=== PATIENT | female | born 1970 | race Caucasian/White ===

== ENCOUNTER 2020-02-01 11:55 | Outpatient (CLI) | payer BC, SELFPAY ==
--- NOTE | ~2020-02-01 | XR_ITS ---
EXAMINATION: XR ankle RT min 3V DATE: 02/01/2020 12:58 INDICATION: Right ankle pain TECHNIQUE: Anteroposterior, oblique, mortise, and lateral views of the right ankle were obtained. COMPARISON: MRI dated 01/26/2013 FINDINGS: Bone alignment is normal. No fracture. Joint spaces are normal. 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 No cortical erosions or periosteal reaction. Soft tissues are unremarkable. No right ank le joint effusion. IMPRESSION: 1. Negative right ankle radiographs. Reviewed, dictated and finalized at location A.
--- NOTE | ~2020-02-01 | XR_ITS ---
EXAMINATION: XR shoulder RT min 2V DATE: 02/01/2020 12:58 INDICATION: Unspecified right shoulder pain TECHNIQUE: AP internally and externally rotated, AP oblique externally rotated and axillary views of the right shoulder were obtained. COMPARISON: None FINDINGS: Normal alignment. No fracture. Glenohumeral joint is normal. Small subarticular cyst at the clavicul ar side of the otherwise normal right acromioclavicular joint space suggesting mild osteoarthritis. S oft tissues are unremarkable. Visualized portions of the lungs are clear. IMPRESSION: Mild acromioclavicular osteoarthritis. Reviewed, dictated and finalized at location A.
--- NOTE | ~2020-02-01 | XR_ITS ---
EXAMINATION: XR knee RT 3V DATE: 02/01/2020 12:58 INDICATION: Unspecified right knee pain TECHNIQUE: Anteroposterior, oblique and crosstable lateral views of the right knee were obtained COMPARISON: None. FINDINGS: Alignment is normal. No fracture. No joint effusion/layering lipohemarthrosis. Soft tissues are unre markable. IMPRESSION: 1. Negative right knee radiographs. Reviewed, dictated and finalized at location A.
== END 2020-02-01 11:56 | disposition home or self-care (01) ==
PROVIDERS: PCP Family Medicine; Visit Provider Family Medicine
DX: M25.579 Pain in unspecified ankle and joints of unspecified foot (principal); M25.569 Pain in unspecified knee; M19.011 Primary osteoarthritis, right shoulder
CPT/HCPCS: 73030; 73562; 73610

== ENCOUNTER 2020-04-06 14:30 | Outpatient (RCR) | payer BC, SELFPAY ==
--- NOTE | 2020-03-10 10:57 | PTOPEVAL ---
Thank you for referring Yashira Simms to [facility]. Please review, sign, date and return this plan of care OZZY. Pt referred to therapy due to right knee and impairment. She demonstrates increased pain, hip weakness, gait impairment and poor functional movement patterns that require additional skilled therapy to address. Cont PT 2x/wk x 6 wk. I agree with and certify that the following plan of care is medically necessary. Referring Physician Date Attending Provider: Jamey Lester MD *PT Outpatient Evaluation Start: 03/10/20 09:32 Freq: Status: Active Protocol: Document 03/10/20 09:32 DAMON (Rec: 03/10/20 10:08 [facility] [email or web address]) Therapy Assessment Status Assessment Status Assessment Status Evaluation Outpatient Past Medical History Cardiovascular History Hx Hypertension Yes Respiratory History Hx Asthma Yes: mild Hx Sleep Apnea Yes Musculoskeletal History Hx Other Musculoskeletal Disorders Yes: right ankle injury 2003, tendon tear Evaluation Information Problem Diagnosis right knee pain Onset 09/05 Cause fall Subjective Information Pt had a fall in August when Query Text:As Reported By Patient/ stepping down a step with a Family twisting motion landing on right side and shoulder. Reports a progression of pain and symptoms. Reports increased pain with negotiating steps, walking, and standing. She has increased pain once she sits down from prolonged standing. She has increased pain with exposure to cold. Reports significant pain with any light touch to the patella , medial/lateral knee region, gastroc region. Hypersensitivity increases with any activities. Issued meloxicam which is helping. 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 She has not had to drive the 2 hours a day, but the decreased driving has not improved her symptoms. Diagnostic Tests X-Rays For This Problem Yes Prior Level of Function Home Setting Home Type House Environmental Barriers Stairs, Greater than 4 Living Situation With Spouse Pain Assessment
--- NOTE | 2020-04-06 15:32 | PTOPEVAL ---
Thank you for referring Yashira Simms to [facility]. Please review, sign, date and return this plan of care OZZY. Pt has received 9 therapy visits to address right knee impairments. She reports improved pain and function with daily activities. She is indep with her HEP. DC skilled therapy with pt to continue with her HEP and general fitness program. I agree with and certify that the following plan of care is medically necessary. Referring Physician Date Admitting Provider: Attending Provider: Jamey Lester MD PT Discharge Note *PT Outpatient Evaluation Start: 03/10/20 09:32 Freq: Status: Active Protocol: Document 04/06/20 14:33 [facility] (Rec: 04/06/20 14:58 [facility] [email or web address]) Therapy Assessment Status Assessment Status Assessment Status Re-evaluation Evaluation Information Problem Diagnosis right knee pain Onset 09/05 Cause fall Additional Evaluation Detail Pt had a fall in August when stepping down a step with a twisting motion landing on right side and shoulder. Subjective Information She had a f/u with on Text:As Reported By Patient/ 20, who does not recommend Family surgery at this time. She is able to walk longer, but cont to pain at the end of the walk. She is going longer time period before the pain flares-up. Reports decreased intensity of pain with negotiating steps, walking, and standing. She is able to get out of bed or chair easier without increased pain. Reports the hypersensitivity of right knee has improved. Pain Assessment Timing of Pain Assessment Timing of Pain Assessment Re-assessment Pain Scale Pain Scale Used Numeric (1 - 10) Self Report Pain Assessment Right Knee(s) Reported Pain Level 2 Pain Description Aching,Burning,Dull,Shooting, Tightness,With Movement Pain Frequency Chronic,Continuous Lowest Pain Intensity 2 Greatest Pain Intensity 10 Pain Aggravating Factors Exercise/Activity,Lifting, Prolonged Position,Sitting, Stair Climbing,Walking,Weight Bearing/Standing Pain Score Pain Score 2: Self Report Lower Extremity Range of Motion Knee Range of Motion Right Knee Flexion Range of Motion - Acti
== END 2020-04-07 13:07 | disposition home or self-care (01) ==
LOC: ANHPT 14:30
PROVIDERS: PCP Family Medicine; Visit Provider Orthopaedic Surgery
DX: M25.561 Pain in right knee (principal); G89.29 Other chronic pain
CPT/HCPCS: 97110; 97112; 97140; 97162

== ENCOUNTER 2020-04-09 14:02 | Outpatient (CLI) | payer BC, SELFPAY ==
[2020-04-09 14:16] LABS: Basophils Absolute Auto 0.1 K/mm3 (0.0-0.1); Basophils Percent Auto 0.8 % (0.2-1.2); Eosinophils Absolute Auto 0.2 K/mm3 (0-0.3); Eosinophils Percent Auto 1.5 % (0-4.4); Hematocrit 38.3 % (37.0-47.0); Immature Granulocyte Absolute 0.04 K/mm3 (0.00-0.031); Immature Granulocyte Percent A 0.4 % (0-0.5); Lymphocytes Percent Auto 20.8 % (18.3-44.2); Mean Corpuscular HGB Conc 31.3 g/dl (32-36); Mean Corpuscular Hemoglobin 28.4 pg (26-34); Mean Corpuscular Volume 90.5 fl (80-100); Mean Platelet Volume 8.5 fl (7.4-10.4); Monocytes Absolute Auto 1.5 K/mm3 (0.1-0.6); Monocytes Percent Auto 14.4 % (2.6-8.5); Neutrophils Absolute Auto 6.6 K/mm3 (1.3-6.7); Neutrophils Percent Auto 62.1 % (45.5-73.1); Platelet Count Result 409 k/mm3 (150-375); Red Blood Count 4.23 M/mm3 (4.2-5.4); White Blood Count 10.6 K/mm3 (4.5-10.0)
[2020-04-09 14:20] LABS: Blood Urea Nitrogen 13 mg/dL (8-26); Carbon Dioxide 26 mmol/L (22-30); Chloride 102 mmol/L (98-109); Estimated Glomerular Filt Rate > 60; Glucose 95 mg/dL (70-105); Potassium 4.2 mmol/L (3.5-4.9); Sodium 139 mmol/L (138-146)
[2020-04-09 16:37] LABS: Alanine Aminotransferase 19 U/L (4-35); Albumin Level 4.1 g/dL (3.5-5.1); Alkaline Phosphatase 79 U/L (38-126); Anion Gap 13.5 mmol/L (7-16); Aspartate Amino Transferase 21 U/L (14-36); Bilirubin,Total 0.3 mg/dL (0.2-1.3); Blood Urea Nitrogen 14 mg/dL (7-17); Carbon Dioxide 25 mmol/L (22-30); Chloride 102 mmol/L (98-107); Estimated Glomerular Filt Rate > 60; Glucose 95 mg/dL (65-105); Potassium 4.5 mmol/L (3.4-5.0); Sodium 136 mmol/L (137-145)
== END 2020-04-09 14:03 | disposition home or self-care (01) ==
LOC: ANHLAB 14:04
PROVIDERS: PCP Family Medicine; Visit Provider Internal Medicine Hematology & Oncology
DX: D47.3 Essential (hemorrhagic) thrombocythemia (principal)
CPT/HCPCS: 36415; 80048; 80053; 85025

== ENCOUNTER → 2020-07-23 17:19 | Outpatient (CLI) | payer BC, SELFPAY ==
--- NOTE | ~2020-07-23 | XR_ITS ---
EXAMINATION: XR chest 2V DATE: 07/23/2020 17:33 INDICATION: Wheezing. TECHNIQUE: Frontal and lateral views of the chest were obtained. COMPARISON: Chest 2 views 11/17/2009, CT abdomen and pelvis 07/09/2019 FINDINGS: The chest demonstrates clear lungs without pneumonia, pleural effusion, or pneumothorax. Th e heart size is normal. Surgical clips in the right upper quadrant are likely from cholecystectomy. IMPRESSION: 1. No acute cardiopulmonary disease. Reviewed, dictated and finalized at location A. [employer]
== END ==
PROVIDERS: PCP Family Medicine; Visit Provider Family Medicine
DX: R06.2 Wheezing (principal); R07.89 Other chest pain
CPT/HCPCS: 71046

== ENCOUNTER 2020-08-01 06:51 | Outpatient (NON) | payer BC, SELFPAY ==
[2020-08-06 08:53] LABS: SARS-CoV-2 RNA PCR Negative
== END 2020-08-01 06:52 ==
LOC: ANHCOVIDDT 06:56
PROVIDERS: Visit Provider Physician Assistant
DX: Z20.828 Contact with and (suspected) exposure to other viral communicable diseases (principal); R05 Cough
CPT/HCPCS: 87635; C9803; U0003

== ENCOUNTER 2020-10-12 15:36 | Outpatient (CLI) | payer BC, SELFPAY ==
[2020-10-12 15:48] LABS: Basophils Absolute Auto 0.1 K/mm3 (0.0-0.1); Basophils Percent Auto 1.1 % (0.2-1.2); Eosinophils Absolute Auto 0.2 K/mm3 (0-0.3); Eosinophils Percent Auto 2.5 % (0-4.4); Hemoglobin 12.9 g/dL (12.0-15.0); Immature Granulocyte Absolute 0.02 K/mm3 (0.00-0.031); Immature Granulocyte Percent A 0.2 % (0-0.5); Lymphocytes Absolute Auto 2.33 K/mm3 (0.9-3.2); Lymphocytes Percent Auto 28.6 % (18.3-44.2); Mean Corpuscular HGB Conc 31.5 g/dl (32-36); Mean Corpuscular Hemoglobin 28.1 pg (26-34); Mean Corpuscular Volume 89.3 fl (80-100); Mean Platelet Volume 8.9 fl (7.4-10.4); Monocytes Absolute Auto 1.3 K/mm3 (0.1-0.6); Monocytes Percent Auto 15.8 % (2.6-8.5); Neutrophils Absolute Auto 4.2 K/mm3 (1.3-6.7); Neutrophils Percent Auto 51.8 % (45.5-73.1); Platelet Count Result 390 k/mm3 (150-375); Red Blood Count 4.59 M/mm3 (4.2-5.4); Red Cell Distribution Width 14.9 % (11.5-14.5); White Blood Count 8.1 K/mm3 (4.5-10.0)
[2020-10-12 15:52] LABS: Blood Urea Nitrogen 15 mg/dL (8-26); Carbon Dioxide 28 mmol/L (22-30); Chloride 104 mmol/L (98-109); Estimated Glomerular Filt Rate > 60; Glucose 100 mg/dL (70-105); Sodium 142 mmol/L (138-146)
[2020-10-12 16:44] LABS: Alanine Aminotransferase 29 U/L (4-35); Alkaline Phosphatase 75 U/L (38-126); Anion Gap 7 mmol/L (8-16); Aspartate Amino Transferase 27 U/L (14-36); Bilirubin,Total 0.3 mg/dL (0.2-1.3); Blood Urea Nitrogen 15 mg/dL (7-17); Calcium 9.2 mg/dL (8.4-10.2); Carbon Dioxide 29 mmol/L (22-30); Chloride 103 mmol/L (98-107); Estimated Glomerular Filt Rate > 60; Glucose 101 mg/dL (65-105); Potassium 4.2 mmol/L (3.4-5.0); Sodium 139 mmol/L (137-145)
== END 2020-10-12 15:37 | disposition home or self-care (01) ==
LOC: ANHLAB 15:37
PROVIDERS: Family Provider Family Medicine; PCP Family Medicine; Visit Provider Internal Medicine Hematology & Oncology
DX: D47.3 Essential (hemorrhagic) thrombocythemia (principal)
CPT/HCPCS: 36415; 80048; 80053; 85025

== ENCOUNTER 2020-11-20 17:09 | Outpatient (CLI) | payer BC, SELFPAY | END 2020-11-20 17:10 | disposition home or self-care (01) | LOC: ANHCOVIDVC 17:09 | PROVIDERS: PCP Family Medicine | DX: Z23 Encounter for immunization (principal) | CPT/HCPCS: 0001A; 91300 ==

== ENCOUNTER 2020-12-11 17:18 | Outpatient (CLI) | payer BC, SELFPAY | END 2020-12-11 17:19 | disposition home or self-care (01) | LOC: ANHCOVIDVC 17:18 | PROVIDERS: PCP Family Medicine | DX: Z23 Encounter for immunization (principal) | CPT/HCPCS: 0002A; 91300 ==

== ENCOUNTER → 2021-05-13 03:24 | Outpatient (CLI) | payer BC, SELFPAY ==
[2021-05-13 20:00] LABS: SARS-CoV-2 RNA PCR Negative
== END ==
PROVIDERS: PCP Family Medicine; Visit Provider Family Medicine
DX: R05 Cough (principal); J34.89 Other specified disorders of nose and nasal sinuses; J02.9 Acute pharyngitis, unspecified; R51.9 Headache, unspecified; Z20.822 Contact with and (suspected) exposure to COVID-19
CPT/HCPCS: C9803; U0003; U0005

== ENCOUNTER 2021-06-26 12:22 | Emergency (ER) | payer OTHER, BC, SELFPAY ==
[2021-06-26 12:55] VITALS: BP 159/116; PULSE 99; RESP 18; TEMP 37.2; O2SAT 98
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
== END 2021-06-26 13:25 | disposition home or self-care (01) ==
PROVIDERS: Emergency Provider Emergency Medicine; PCP Family Medicine
DX: S46.911A Strain of unspecified muscle, fascia and tendon at shoulder and upper arm level, right arm, initial encounter (principal); V49.50XA Passenger injured in collision with unspecified motor vehicles in traffic accident, initial encounter; J44.9 Chronic obstructive pulmonary disease, unspecified; E03.9 Hypothyroidism, unspecified
CPT/HCPCS: 99213; G0463

== ENCOUNTER 2021-10-11 15:20 | Outpatient (CLI) | payer BC, SELFPAY ==
[2021-10-11 15:40] LABS: Basophils Absolute Auto 0.1 K/mm3 (0.0-0.1); Basophils Percent Auto 0.9 % (0.2-1.2); Eosinophils Absolute Auto 0.2 K/mm3 (0-0.3); Eosinophils Percent Auto 1.7 % (0-4.4); Hematocrit 41.8 % (37.0-47.0); Hemoglobin 13.3 g/dL (12.0-15.0); Immature Granulocyte Absolute 0.02 K/mm3 (0.00-0.031); Immature Granulocyte Percent A 0.2 % (0-0.5); Lymphocytes Absolute Auto 2.42 K/mm3 (0.9-3.2); Lymphocytes Percent Auto 27.7 % (18.3-44.2); Mean Corpuscular HGB Conc 31.8 g/dl (32-36); Mean Corpuscular Hemoglobin 30.2 pg (26-34); Mean Platelet Volume 8.9 fl (7.4-10.4); Monocytes Absolute Auto 1.4 K/mm3 (0.1-0.6); Monocytes Percent Auto 15.7 % (2.6-8.5); Neutrophils Absolute Auto 4.7 K/mm3 (1.3-6.7); Neutrophils Percent Auto 53.8 % (45.5-73.1); Platelet Count Result 392 k/mm3 (150-375); Red Cell Distribution Width 13.5 % (11.5-14.5); White Blood Count 8.7 K/mm3 (4.5-10.0)
[2021-10-11 15:44] LABS: Blood Urea Nitrogen 15 mg/dL (8-26); Carbon Dioxide 27 mmol/L (22-30); Chloride 103 mmol/L (98-109); Estimated Glomerular Filt Rate > 60; Glucose 104 mg/dL (70-105); Potassium 3.9 mmol/L (3.5-4.9); Sodium 141 mmol/L (138-146)
[2021-10-11 16:18] LABS: Alanine Aminotransferase 23 U/L (4-35); Albumin Level 4.3 g/dL (3.5-5.1); Alkaline Phosphatase 79 U/L (38-126); Anion Gap 6 mmol/L (8-16); Aspartate Amino Transferase 28 U/L (14-36); Bilirubin,Total 0.3 mg/dL (0.2-1.3); Blood Urea Nitrogen 15 mg/dL (7-17); Calcium 9.4 mg/dL (8.4-10.2); Carbon Dioxide 26 mmol/L (22-30); Chloride 106 mmol/L (98-107); Estimated Glomerular Filt Rate > 60; Glucose 112 mg/dL (65-110); Sodium 138 mmol/L (137-145)
== END 2021-10-11 15:21 | disposition home or self-care (01) ==
LOC: ANHLAB 15:27
PROVIDERS: PCP Family Medicine; Visit Provider Internal Medicine Hematology & Oncology
DX: D75.839 Thrombocytosis, unspecified (principal)
CPT/HCPCS: 36415; 80053; 85025